=== PATIENT | male | born 1970 | race Caucasian/White ===

== ENCOUNTER 2022-09-28 16:43 | Emergency (ER) | payer BC, SELFPAY ==
[2022-09-28 16:46] VITALS: BP 147/77; PULSE 81; RESP 16; TEMP 36.6; O2SAT 98
[2022-09-28 17:37] LABS: Basophils Percent Auto 0.3 % (0.2-1.2); Eosinophils Percent Auto 0.3 % (0-4.4); Hematocrit 43.7 % (42.0-52.0); Hemoglobin 14.5 g/dL (14.0-18.0); Immature Granulocyte Absolute 0.02 K/mm3 (0.00-0.031); Immature Granulocyte Percent A 0.3 % (0-0.5); Lymphocytes Absolute Auto 0.96 K/mm3 (0.9-3.2); Lymphocytes Percent Auto 13.9 % (18.3-44.2); Mean Corpuscular HGB Conc 33.2 g/dl (32-36); Mean Corpuscular Hemoglobin 27.7 pg (26-34); Mean Corpuscular Volume 83.6 fl (80-100); Mean Platelet Volume 9.6 fl (7.4-10.4); Monocytes Absolute Auto 0.5 K/mm3 (0.1-0.6); Monocytes Percent Auto 6.5 % (2.6-8.5); Neutrophils Absolute Auto 5.5 K/mm3 (1.3-6.7); Neutrophils Percent Auto 78.7 % (45.5-73.1); Platelet Count Result 181 k/mm3 (150-375); Red Blood Count 5.23 M/mm3 (4.6-6.20); Red Cell Distribution Width 12.8 % (11.5-14.5); White Blood Count 6.9 K/mm3 (4.5-10.0)
[2022-09-28 17:47] LABS: Alanine Aminotransferase 23 U/L (6-50); Albumin Level 4.6 g/dL (3.5-5.1); Alkaline Phosphatase 101 U/L (38-126); Anion Gap 9 mmol/L (8-16); Aspartate Amino Transferase 47 U/L (17-59); Bilirubin,Total 0.7 mg/dL (0.2-1.3); Blood Urea Nitrogen 17 mg/dL (9-20); Calcium 9.3 mg/dL (8.4-10.2); Carbon Dioxide 26 mmol/L (22-30); Chloride 105 mmol/L (98-107); Estimated Glomerular Filt Rate > 60; Glucose 188 mg/dL (65-110); Potassium 3.9 mmol/L (3.4-5.0); Sodium 140 mmol/L (137-145)
[2022-09-28 19:49] LABS: Appearance Urine Clear (Clear); Bilirubin Urine Negative (Negative); Blood Urine Negative (Negative); Color Urine Yellow (Yellow); Glucose Urine UA 3+ mg/dL (Negative); Ketones Urine 2+ mg/dL (Negative); Leukocyte Esterase Ur Negative LEU/UL (Negative); Nitrate Urine Negative (Negative); Protein Urine Negative (Negative); Urobilinogen Urine 0.2 mg/dL (<2.0); pH Urine 5.5 (5.0-9.0)
[2022-09-28 19:50] LABS: Specific Grav Ur 1.048 (1.001-1.035)
[2022-09-28 19:51] LABS: Add Urine Microscopic? NO
--- NOTE | 2022-09-28 20:39 | PC.NURSE ---
1st encounter, pt states he feels like his kidneys are shutting down, pt having pain on both left and right flank pain. pt states there was a slight sensation when he gave the urine sample earlier. pt in no acute distress or SOB, airway patent, breathing even/unlabored. gait steady.
[2022-09-28 20:43] VITALS: BP 137/74; PULSE 86; RESP 18; O2SAT 100
--- NOTE | 2022-09-28 21:21 | ED.BACK ---
HPI - Back Pain/Injury General Chief Complaint: Back Pain/Injury Stated Complaint: Kidney issues Time Seen by Provider: 09/28/22 20:59 History of Present Illness HPI Narrative: 51-year-old male with a history of diabetes reports for evaluation of low back pain that started today. Patient states the pain feels like someone is squeezing his low back and is worse with movement. Reports he went to a local urgent care and was told it was likely muscle spasm and was prescribed Flexeril and advised to take 600 mg of ibuprofen. Patient reports he took his first dose of Flexeril and ibuprofen with some relief, however came to the ED because he was worried his kidneys were failing. Patient reports he has a history of kidney stones, however this pain does not feel like a kidney stone. He denies chest pain, shortness of breath, abdominal pain, dizziness or lightheadedness, fever, bodyaches, chills, history of cancer or IV drug use, steroid or immunosuppressive use, paresthesias, loss of bowel or bladder control or retention, saddle anesthesia, trauma, hematuria, dysuria, nausea, vomiting, diarrhea, scrotal pain. Patient reports he has a appointment with his primary care provider in 2 days. Related Data Allergies Allergy/AdvReac Type Severity Reaction Status Date / Time No Known Allergies Allergy Verified 09/28/22 16:48 Review of Systems Review of Systems: CONSTITUTIONAL: Denies fever, chills EYES: Denies visual changes, redness, or discharge. ENT: Denies rhinorrhea, congestion, sore throat, or otalgia. CARDIOVASCULAR: Denies chest pain, palpitations, or edema. RESPIRATORY: Denies cough or dyspnea. GASTROINTESTINAL: Denies abdominal pain, nausea, vomiting, or diarrhea. GENITOURINARY: Denies dysuria or hematuria. SKIN: Denies rash or itching. MUSCULOSKELETAL: See HPI NEUROLOGIC: Denies headache, numbness, dizziness, or weakness. PSYCHIATRIC: Denies anxiety or depression. Exam Narrative: GENERAL: Well-appearing, well-nourished, and in no acute distress. Patient resting comfortably in the exam bed. He is pleasant and conversational. HEAD: Normocephalic, atraumatic. EYES: PERRLA and EOMI. NECK: Supple. No adenopathy or masses. CHEST: Clear to auscultation. No respiratory distress. No wheezes rales or rhonchi HEART: Regular rate and rhythm. No murmur heard. Normal peripheral pulses. ABDOMEN: Soft, nontender, nondistended, normal active bowel sounds. No pulsatile mass appreciated. BACK: No midline vertebral spine tenderness, step-offs, deformities. No CVA tenderness bilaterally. Tenderness to bilateral paraspinous muscles. Patient with full flexion, extension, rotation, however has exacerbated pain with all movements. No saddle anesthesia. Plantarflexion, dorsiflexion, hip flexion, EHL strength 5 out of 5 bilaterally. Sensation intact throughout lower extremities. No meningeal signs. No overlying skin changes to back. EXTREMITIES: Normal range of motion. No edema. SKIN: Warm, dry, no rash. NEURO: No focal deficits. Alert and oriented x3. PSYCH: Normal mood and affect. Course Vital Signs Vital signs: Vital Signs Temperature 97.9 F 09/28/22 16:46 Pulse Rate 81 09/28/22 16:46 Respiratory Rate 16 09/28/22 16:46 Blood Pressure 147/77 H 09/28/22 16:46 Pulse Oximetry 98 09/28/22 16:46 Temperature 97.9 F 09/28/22 16:46 Pulse Rate 86 09/28/22 20:43 Respiratory Rate 18 09/28/22 20:43 Blood Pressure 137/74 09/28/22 20:43 Pulse Oximetry 100 09/28/22 20:43 MDM - Back Pain/Injury MDM Narrative Medical decision making narrative: 51-year-old male with a history of diabetes reports for evaluation of bilateral low back pain that started today. Patient reports the pain feels like someone is squeezing his low back. Patient was evaluated at urgent care and was diagnosed with a muscle spasm, prescribed Flexeril and advised to take 600 mg of ibuprofen. He came to the ED because he was worried his kidneys were
== END 2022-09-28 21:37 | disposition home or self-care (01) ==
PROVIDERS: Preventive Medicine Aerospace Medicine; Emergency Provider Physician Assistant
DX: M54.50 Low back pain, unspecified (principal); E11.9 Type 2 diabetes mellitus without complications; Z87.442 Personal history of urinary calculi
CPT/HCPCS: 36415; 80053; 81003; 85025; 99283